=== PATIENT | female | born 1960 | race Caucasian/White ===

== ENCOUNTER 2017-02-27 08:24 | Emergency (ER) | payer MEDICAID ==
[~2017-02-27] VITALS: Wt 75.7 kg
[~2017-02-27 08:24] MED LIST: ARICEPT10 MG PO; ARICEPT5 M1 PO; ARICEPT5 MG PO; AUGMENTIN 875 M1 TAB PO; NAMENDA10 MG PO; NKHM; PERCOCET 325 MG1 TA5 PO; SYNTHROID,LEV100 MCG PO; SYNTHROID0.025 MG PO; VITAMIN D-32000 UNIT PO
[2017-02-27 09:30] LABS: BASO % 0.2 % (0.0-1.0); EOS # 0.1 10*3/uL (0.0-0.4); EOS % 0.6 % (1.0-4.0); HEMOGLOBIN 13.9 g/dl (12.0-16.0); LYMPH # 0.9 10*3/uL (1.3-4.4); LYMPH % 9.5 % (27.0-41.0); MEAN CELL VOLUME 89.3 fl (81.0-99.0); MEAN CORPUSCULAR HGB CONC 34.8 g/dl (33.0-37.0); MEAN PLATELET VOLUME 10.2 fl (9.6-12.3); MONO # 0.6 10*3/uL (0.1-1.0); MONO % 5.7 % (3.0-9.0); NEUT # 8.3 10*3/uL (2.3-7.9); NEUT % 83.4 % (47.0-73.0); PLATELET COUNT AUTOMATED 280 10*3/uL (130-400); RED BLOOD COUNT 4.48 10*6/uL (4.10-5.10); RED CELL DISTRI WIDTH 12.6 % (0-14.5); WHITE BLOOD COUNT 9.9 10*3/uL (4.8-10.8)
[2017-02-27 09:47] LABS: ALBUMIN 3.8 gm/dl (3.1-4.5); ALKALINE PHOSPHATASE 59 U/L (45-117); BUN 16 mg/dl (7-24); CHLORIDE 108 mmol/L (98-107); CREATININE 0.98 mg/dL (0.55-1.02); POTASSIUM 3.6 mmol/L (3.5-5.1); SGOT/AST 19 IU/L (3-35); SGPT/ALT 33 U/L (12-78); SODIUM 142 mmol/L (136-145); TOTAL PROTEIN 7.3 gm/dL (6.4-8.2)
[2017-02-27 09:48] LABS: TROPONIN I < 0.015 ng/ml (<0.045)
[2017-02-27 10:31] LABS: BILIRUBIN NEGATIVE (NEGATIVE); BLOOD NEGATIVE (NEGATIVE); CLARITY CLEAR (CLEAR); COLOR YELLOW (YELLOW); GLUCOSE NEGATIVE (NEGATIVE); KETONE NEGATIVE (NEGATIVE); LEUKO ESTERASE NEGATIVE (NEGATIVE); NITRITE NEGATIVE (NEGATIVE); UROBILINOGEN 0.2 E.U./dl (0.2-1.0)
[2017-02-27 10:49] LABS: BACTERIA TRACE
[2017-02-27 10:50] LABS: WBC 0-2 wbc/hpf (0-5)
== END 2017-02-27 13:35 | disposition home or self-care (01) ==
LOC: ED 08:24
PROVIDERS: Emergency Medicine
DX: S06.0X0A Concussion without loss of consciousness, initial encounter (principal); S09.8XXA Other specified injuries of head, initial encounter; Z79.899 Other long term (current) drug therapy; Z90.49 Acquired absence of other specified parts of digestive tract; W18.09XA Striking against other object with subsequent fall, initial encounter; Y93.89 Activity, other specified; Y92.89 Other specified places as the place of occurrence of the external cause; Y99.8 Other external cause status

== ENCOUNTER → 2017-06-28 | Outpatient (CLI) | payer MEDICAID ==
[2017-06-28 10:18] LABS: BASO % 0.5 % (0.0-1.0); EOS # 0.2 10*3/uL (0.0-0.4); EOS % 2.4 % (1.0-4.0); HEMATOCRIT 42.8 % (37.0-47.0); HEMOGLOBIN 14.2 g/dl (12.0-16.0); LYMPH # 2.1 10*3/uL (1.3-4.4); LYMPH % 31.3 % (27.0-41.0); MEAN CELL VOLUME 90.9 fl (81.0-99.0); MEAN CORPUSCULAR HGB 30.1 pg (27.0-31.0); MEAN CORPUSCULAR HGB CONC 33.2 g/dl (33.0-37.0); MEAN PLATELET VOLUME 10.1 fl (9.6-12.3); MONO # 0.6 10*3/uL (0.1-1.0); MONO % 9.8 % (3.0-9.0); NEUT # 3.7 10*3/uL (2.3-7.9); NEUT % 55.8 % (47.0-73.0); PLATELET COUNT AUTOMATED 304 10*3/uL (130-400); RED BLOOD COUNT 4.71 10*6/uL (4.10-5.10); RED CELL DISTRI WIDTH 13.1 % (0-14.5); WHITE BLOOD COUNT 6.5 10*3/uL (4.8-10.8)
[2017-06-28 10:43] LABS: ALBUMIN 3.7 gm/dl (3.1-4.5); ALKALINE PHOSPHATASE 60 U/L (45-117); BUN 14 mg/dl (7-24); CHLORIDE 107 mmol/L (98-107); IRON 103 ug/dL (50-170); POTASSIUM 3.7 mmol/L (3.5-5.1); SGOT/AST 10 IU/L (3-35); SGPT/ALT 23 U/L (12-78); SODIUM 143 mmol/L (136-145); TOTAL IRON BINDING CAPACITY 286 ug/dl (250-450); TOTAL PROTEIN 7.5 gm/dL (6.4-8.2)
[2017-06-28 11:06] LABS: FREE T4 0.74 ng/dl (0.76-1.46)
== END | disposition home or self-care (01) ==
LOC: LAB 09:45
PROVIDERS: Family Medicine
DX: E03.9 Hypothyroidism, unspecified (principal); I10 Essential (primary) hypertension; F50.89 Other specified eating disorder

== ENCOUNTER → 2017-09-03 | Outpatient (CLI) | payer MEDICAID ==
[~2017-09-03] MED LIST changes: +LEVOFLOXACIN500 MG PO
[2017-09-03 09:40] LABS: BASO % 0.5 % (0.0-1.0); EOS # 0.2 10*3/uL (0.0-0.4); EOS % 4.6 % (1.0-4.0); HEMATOCRIT 44.7 % (37.0-47.0); LYMPH # 1.1 10*3/uL (1.3-4.4); LYMPH % 25.7 % (27.0-41.0); MEAN CELL VOLUME 89.2 fl (81.0-99.0); MEAN CORPUSCULAR HGB 29.9 pg (27.0-31.0); MEAN CORPUSCULAR HGB CONC 33.6 g/dl (33.0-37.0); MEAN PLATELET VOLUME 9.8 fl (9.6-12.3); MONO # 0.6 10*3/uL (0.1-1.0); MONO % 13.3 % (3.0-9.0); NEUT # 2.3 10*3/uL (2.3-7.9); NEUT % 55.7 % (47.0-73.0); PLATELET COUNT AUTOMATED 226 10*3/uL (130-400); RED BLOOD COUNT 5.01 10*6/uL (4.10-5.10); RED CELL DISTRI WIDTH 12.4 % (0-14.5); WHITE BLOOD COUNT 4.1 10*3/uL (4.8-10.8)
[2017-09-03 09:57] LABS: ALBUMIN 3.6 gm/dl (3.1-4.5); ALKALINE PHOSPHATASE 53 U/L (45-117); BUN 9 mg/dl (7-24); CHLORIDE 108 mmol/L (98-107); CREATININE 0.96 mg/dL (0.55-1.02); IRON 120 ug/dL (50-170); POTASSIUM 3.2 mmol/L (3.5-5.1); SGOT/AST 13 IU/L (3-35); SGPT/ALT 28 U/L (12-78); SODIUM 145 mmol/L (136-145); TOTAL IRON BINDING CAPACITY 265 ug/dl (250-450); TOTAL PROTEIN 7.7 gm/dL (6.4-8.2)
[2017-09-03 10:51] LABS: FREE T4 1.41 ng/dl (0.76-1.46)
== END | disposition home or self-care (01) ==
LOC: LAB 09:02
PROVIDERS: Family Medicine
DX: E03.9 Hypothyroidism, unspecified (principal); I10 Essential (primary) hypertension; F50.89 Other specified eating disorder; R30.0 Dysuria; G30.0 Alzheimer's disease with early onset; Z79.899 Other long term (current) drug therapy

== ENCOUNTER 2017-09-08 15:26 | Emergency (ER) | payer MEDICAID ==
[~2017-09-08] VITALS: Ht 167.6 cm; Wt 72.6 kg
[~2017-09-08 15:26] MED LIST changes: -LEVOFLOXACIN500 MG PO
[2017-09-08 16:00] LABS: BASO % 0.3 % (0.0-1.0); EOS % 0.5 % (1.0-4.0); HEMATOCRIT 43.6 % (37.0-47.0); HEMOGLOBIN 14.9 g/dl (12.0-16.0); LYMPH # 1.5 10*3/uL (1.3-4.4); LYMPH % 23.8 % (27.0-41.0); MEAN CELL VOLUME 88.8 fl (81.0-99.0); MEAN CORPUSCULAR HGB 30.3 pg (27.0-31.0); MEAN CORPUSCULAR HGB CONC 34.2 g/dl (33.0-37.0); MONO # 0.9 10*3/uL (0.1-1.0); MONO % 13.9 % (3.0-9.0); NEUT # 3.9 10*3/uL (2.3-7.9); NEUT % 61.2 % (47.0-73.0); PLATELET COUNT AUTOMATED 244 10*3/uL (130-400); RED BLOOD COUNT 4.91 10*6/uL (4.10-5.10); RED CELL DISTRI WIDTH 12.2 % (0-14.5); WHITE BLOOD COUNT 6.4 10*3/uL (4.8-10.8)
[2017-09-08 16:11] LABS: ALBUMIN 3.5 gm/dl (3.1-4.5); ALKALINE PHOSPHATASE 49 U/L (45-117); BUN 12 mg/dl (7-24); CHLORIDE 104 mmol/L (98-107); CREATININE 0.98 mg/dL (0.55-1.02); POTASSIUM 3.5 mmol/L (3.5-5.1); SGOT/AST 17 IU/L (3-35); SGPT/ALT 25 U/L (12-78); SODIUM 141 mmol/L (136-145); TOTAL PROTEIN 7.1 gm/dL (6.4-8.2)
[2017-09-08 16:15] LABS: BILIRUBIN NEGATIVE (NEGATIVE); BLOOD NEGATIVE (NEGATIVE); CLARITY SL CLOUDY (CLEAR); COLOR YELLOW (YELLOW); GLUCOSE NEGATIVE (NEGATIVE); KETONE NEGATIVE (NEGATIVE); LEUKO ESTERASE TRACE (NEGATIVE); NITRITE NEGATIVE (NEGATIVE); SPECIFIC GRAVITY <= 1.005 (1.005-1.030)
[2017-09-08 16:20] LABS: BACTERIA 1+; MUCOUS TRACE; WBC 21-30 wbc/hpf (0-5)
[2017-09-08] MEDS ORDERED: LEVOFLOXACIN500 MG PO (16:40)
== END 2017-09-08 16:48 | disposition home or self-care (01) ==
LOC: ED 15:26
PROVIDERS: Emergency Medicine
DX: N39.0 Urinary tract infection, site not specified (principal); G31.09 Other frontotemporal neurocognitive disorder; F02.80 Dementia in other diseases classified elsewhere, unspecified severity, without behavioral disturbance, psychotic disturbance, mood disturbance, and anxiety; Z90.49 Acquired absence of other specified parts of digestive tract; Z79.899 Other long term (current) drug therapy

== ENCOUNTER 2019-01-05 17:57 | Inpatient (IN) | payer MEDICAID ==
[~2019-01-05] VITALS: Ht 167.6 cm; Wt 60.0 kg
[~2019-01-05 17:57] MED LIST changes: +LEVOFLOXACIN500 MG PO
[2019-01-05 18:00] VITALS: BP 105/68
--- NOTE | 2019-01-05 18:11 | NUR ---
WARM BLANKET PROVIDED. VARIOUS FAMILY IS AT THE BEDSIDE. AWAITING ORDERS. WILL MONITOR.
[2019-01-05] MEDS ORDERED: LEVOXYL112 MCG PO (18:20)
[2019-01-05] MEDS ORDERED: DEPAKOTE125 MG PO (18:21)
[2019-01-05] MEDS ORDERED: LISINOPRIL5 MG PO (18:21)
[2019-01-05] MEDS ORDERED: VISTARIL25 MG PO (18:21)
[2019-01-05] MEDS ORDERED: REMERON30 M1 PO (18:21)
--- NOTE | 2019-01-05 18:29 | NUR ---
TAKEN FOR X-RAY VIA STRETCHER.
--- NOTE | 2019-01-05 18:30 | NUR ---
MED REC COMPLETED MUCH POSSIBLE. FAMILY UNSURE OF SOME DOSES OF MEDICATIONS.
--- NOTE | 2019-01-05 18:54 | NUR ---
Flu swab sent. Awaiting effects of zofran prior to administering tylenol due to episode of green emesis 10 minutes ago. Family changed gown and bed linens.
[2019-01-05 19:15] LABS: HEMATOCRIT 44.8 % (37.0-47.0); MEAN CELL VOLUME 92.2 fl (81.0-99.0); MEAN CORPUSCULAR HGB 30.9 pg (27.0-31.0); MEAN CORPUSCULAR HGB CONC 33.5 g/dl (33.0-37.0); MEAN PLATELET VOLUME 10.5 fl (9.6-12.3); PLATELET COUNT AUTOMATED 311 10*3/uL (130-400); RED BLOOD COUNT 4.86 10*6/uL (4.10-5.10); RED CELL DISTRI WIDTH 12.5 % (0-14.5); WHITE BLOOD COUNT 20.5 10*3/uL (4.8-10.8)
[2019-01-05 19:23] LABS: ALBUMIN 4.2 gm/dl (3.1-4.5); ALKALINE PHOSPHATASE 42 U/L (45-117); BUN 21 mg/dl (7-24); CHLORIDE 107 mmol/L (98-107); CREATININE 1.03 mg/dL (0.55-1.02); POTASSIUM 3.6 mmol/L (3.5-5.1); SGOT/AST 14 IU/L (3-35); SGPT/ALT 36 U/L (12-78); SODIUM 141 mmol/L (136-145); TOTAL PROTEIN 7.6 gm/dL (6.4-8.2)
--- NOTE | 2019-01-05 19:27 | NUR ---
NOTIFIED YANIRA MIXON OF LACTIC ACID OF 3.3.
[2019-01-05 19:32] LABS: PLATELET SUFFICIENCY NORMAL (NORMAL); TOTAL CELLS COUNTED 100 #CELLS
--- NOTE | 2019-01-05 19:44 | NUR ---
DR RUTHERFORD AND YANIRA IN TO DISCUSS ADMISSION AND ADDITIONAL ORDERS WITH FAMILY.
[2019-01-05 19:45] VITALS: BP 115/71
--- NOTE | 2019-01-05 19:45 | NUR ---
FAMILY AWARE OF NEED FOR URINE SPECIMEN AND IS GOING TO CAR TO RETRIEVE NEW DEPEND SO PATIENT CAN BE AMBULATED TO BATHROOM TO ATTEMPT SPECIMEN COLLECTION.
--- NOTE | 2019-01-05 19:55 | NUR ---
OFF THE FLOOR FOR IMAGING.
--- NOTE | 2019-01-05 20:24 | NUR ---
FAMILY ASSISTED TO BATHROOM TO ATTEMPT URINE COLLECTION. CLEAN BRIEF AND WIPES PROVIDED.
--- NOTE | 2019-01-05 20:35 | NUR ---
STRAIGHT CATH FOR URINE PERFORMED WITH ASSIST OF FAMILY AND URINE SENT. TOLERATED WELL. YANIRA IS AT THE BEDSIDE DISCUSSING RESULTS.
[2019-01-05 20:42] LABS: BILIRUBIN NEGATIVE (NEGATIVE); BLOOD NEGATIVE (NEGATIVE); CLARITY SL CLOUDY (CLEAR); COLOR YELLOW (YELLOW); GLUCOSE NEGATIVE (NEGATIVE); KETONE TRACE (NEGATIVE); LEUKO ESTERASE 1+ (NEGATIVE); NITRITE POSITIVE (NEGATIVE); PH 8.5 (5.0-9.0)
--- NOTE | 2019-01-05 20:46 | NUR ---
YANIRA MIXON IS AT THE BEDSIDE.
[2019-01-05 20:48] LABS: BACTERIA 4+; WBC 51-100 wbc/hpf (0-5)
--- NOTE | 2019-01-05 21:37 | NUR ---
SPOKE WITH MARTINA BRENNAN TO ADVISE OF PT ON [place] MONITOR AND LEAVING DEPARTMENT WITH THIS RN.
[2019-01-05 21:50] VITALS: BP 141/76
--- NOTE | 2019-01-05 21:50 | NUR ---
A 58, admitted to , under the services of LINDA Colvin DO with a diagnosis of N/V, FEVER. Chief complaint is MULTIPLE COMPLAINTS. Patient arrived via stretcher from ER. DIOGENES WRAY
--- NOTE | 2019-01-05 22:30 | NUR ---
DR. KING NOTIFIED OF PATIENT ARRIVAL, NPO STATUS, DEMENTIA/NONVERBAL STATUS, MEDICATION RECONCILLIATION COMPLETED. WAITING ON ORDERS
--- NOTE | 2019-01-05 22:30 | NUR ---
DR. KING NOTIFIED OF FAMILY CONCERNS OVER MULTIPLE ANTIBIOTICS ORDERED IN SHORT PERIOD OF TIME, ORDERS RECEIVED. ALSO MADE AWARE OF LACTIC ACID 3.4 AND LAB HERE NOW TO DRAW NEXT ORDERED.
[2019-01-06] VITALS: BP 107/67
--- NOTE | 2019-01-06 01:10 | NUR ---
DR. KING NOTIFIED OF LACTIC ACID RESULT OF 2.2 AND THAT ORDERED BOLUS WAS STILL INFUSING, NO ORDERS RECEIVED.
--- NOTE | 2019-01-06 01:40 | NUR ---
FLUID BOLUS COMPLETED AT THIS TIME. PATIENT RESTING IN BED IN A POSITION OF COMFORT, NO SIGNS OR SYMPTOMS OF DISTRESS OR PAIN NOTED. FAMILY AT BEDSIDE. CALL LIGHT WITHIN REACH OF FAMILY. WILL CONTINUE TO MONITOR.
--- NOTE | 2019-01-06 03:12 | NUR ---
NOTIFIED BY LAB OF PATIENT LACTIC ACID LEVEL OF 2.1, WHICH IS TRENDING DOWN FROM INITIAL 3.3 IN ER.
--- NOTE | 2019-01-06 04:12 | NUR ---
PATIENT RESTING IN A POSITION OF COMFORT, RESPIRATIONS EASY AND NONLABORED AT THIS TIME. DAUGHTER AT BEDSIDE. CALL LIGHT WITHIN REACH.
[2019-01-06 07:08] LABS: ALKALINE PHOSPHATASE 33 U/L (45-117); BUN 16 mg/dl (7-24); CHLORIDE 116 mmol/L (98-107); CHOLESTEROL 125 mg/dL (<200); HDL CHOLESTEROL 42 mg/dl (40-60); LDL CHOLESTEROL 75 mg/dL (9-159); PHOSPHOROUS 2.9 mg/dL (2.5-4.9); POTASSIUM 4.1 mmol/L (3.5-5.1); SGOT/AST 20 IU/L (3-35); SGPT/ALT 34 U/L (12-78); SODIUM 146 mmol/L (136-145); TRIGLYCERIDES 42 mg/dl (<150); VLDL CHOLESTEROL 8 mg/dL (6-40)
[2019-01-06 07:10] LABS: BASO % 0.2 % (0.0-1.0); EOS % 0.1 % (1.0-4.0); HEMOGLOBIN 11.6 g/dl (12.0-16.0); LYMPH # 1.5 10*3/uL (1.3-4.4); LYMPH % 8.8 % (27.0-41.0); MEAN CELL VOLUME 94.3 fl (81.0-99.0); MEAN CORPUSCULAR HGB 31.3 pg (27.0-31.0); MEAN CORPUSCULAR HGB CONC 33.1 g/dl (33.0-37.0); MEAN PLATELET VOLUME 11.4 fl (9.6-12.3); MONO # 1.4 10*3/uL (0.1-1.0); MONO % 8.3 % (3.0-9.0); NEUT # 13.9 10*3/uL (2.3-7.9); NEUT % 82.2 % (47.0-73.0); PLATELET COUNT AUTOMATED 248 10*3/uL (130-400); RED BLOOD COUNT 3.71 10*6/uL (4.10-5.10); RED CELL DISTRI WIDTH 12.8 % (0-14.5); WHITE BLOOD COUNT 16.9 10*3/uL (4.8-10.8)
[2019-01-06 08:00] VITALS: BP 92/70
--- NOTE | 2019-01-06 08:19 | NUR ---
FAMILY WOULD LIKE TO HOLD AEROSOL TREATMENTS D/T PTS INCREASED AGITATION DURING ADMINISTRATION.
[2019-01-06 08:22] LABS: VITAMIN D, 25-HYDROXY 17.7 ng/mL (30-100)
--- NOTE | 2019-01-06 09:00 | NUR ---
Utilities Ground Worker in to talk to patient. Patient states lives at home with daughter in law and son. There are no steps in the home. Physician: leah marquez Pharmacy: Home health services: passport services through [employer] Patient's level of ADLs: MODERATE ASSIST Patient has working utilities: all working DME: none Follow-up physician's appointment after d/c: will be made by hospitalist kianna director upon discharge Does patient want to access PORTAL?: no Discharge plan discussed with patient, discussed with patient's daughter and daughter in law, patient is non verbal, patient lives at home with daughter in law and son, daughter in law states patient has passport services through [employer], which is only an aid, family stated patient would be returning home when medically stable, discussed with them VNA and family stated they didn't see that patient had a skilled need at this time, case management will follow. JULY SIFUENTES
--- NOTE | 2019-01-06 09:07 | NUR ---
ARVIND SCOTT AT DESK AND NOTIFIED OF PT BP AND THAT PT NPO. NEW ORDER FOR 5OO ML IVF BOLUS
--- NOTE | 2019-01-06 10:34 | NUR ---
PER FAMILY PT HOLDING HEAD AND MAY BE SHOWING SIGNS OF NAUDEA AND/OR PAIN. FAMILY REQUESTED I GIVE TYLENOL AND ZOFRAN. GIVEN TYLENOL SUPP AT THIS TIME SINCE PT IS NPO AND ZOFRAN. WILL CONT TO MONITOR. CALL LIGHT IN REACH.
[2019-01-06 10:48] VITALS: BP 100/70
[2019-01-06 12:00] VITALS: BP 93/73
[2019-01-06 12:30] VITALS: BP 102/60
--- NOTE | 2019-01-06 13:05 | NUR ---
SPEECH PATHOLOGY Clinical swallowing evaluation completed as per order to assess safety of swallow. Medical history includes Alzheimer's dementia. Patient was admitted with nausea/vomiting and fever. Family members were present and reported concern about aspiration, suspecting it occurring after patient vomited. Family also reported that recently patient has begun to hold food and liquid in her mouth prior to swallowing. CT of chest revealed dense consolidation in right lower lobe and patchy airspace disease in right middle lobe. Findings concerning of pneumonia. Patient is currently NPO. She was seen this pm. Patient was alert with cues provided as she often shut her eyes. Patient was nonverbal and unable to follow commands. She was assessed with puree, soft solid and thin liquid taken by cup. When given pureed consistency, patient was noted to display mildly increased oral transit time. Once she swallowed there was no residue, cough or throat clearing. With soft solid, lengthy mastication and oral transit were displayed. Mild oral residue was noted which cleared with liquid wash. No cough or throat clearing was observed. Patient took single sips of water with a timely swallow and no cough or throat clearing. Overall she displayed a mild-moderate oral dysphagia characterized by slow mastication, oral transit and residue. Recommend patient receive a pureed diet and thin liquids. Recommend patient be fully awake for meals, take small bites/sips and alternating consistencies to heighten awareness to reduce holding of food and liquid. MBS is not warranted at this time as pharyngeal deficits are not suspected. Follow up therapy is recommended to ensure safety through education and adherence to safe swallow precautions. Refer to report in [employer] for further information. Thank you for this referral. JAKE AZUL MS[facility]-PAINT LABORATORY TECHNICIAN
--- NOTE | 2019-01-06 13:14 | NUR ---
CLARIFIED VISTARIL FREQUENCY WITH FAMILY.
--- NOTE | 2019-01-06 13:34 | NUR ---
PHYSICAL THERAPY Physical therapy screen completed. Pt surrounded by multiple family members. Family expressed that Pt is mobile and that they have no concerns upon going home.Family refusing physical therapy; expressing no needs. Therapy to be discharged. Thank you Gissell Mantilla, PT, DPT
--- NOTE | 2019-01-06 13:35 | NUR ---
Occupational Therapy evaluation offered but family declined. Patient in bed with blankets up to chin and non-verbal. There were 6 family members in the room with daughter in law (who patient lives with ) and daughter answering the interview questions. Prior to admission family reports that patient was assisted with feeding at times and was able to self feed at others. Family reports that patient is "mobile" and did not need any OT/PT at this time. Family will be taking patient home upon d/c. Discharge OT referral per family request. Judy Diaz OTr/L
--- NOTE | 2019-01-06 14:28 | NUR ---
Duplicate Occupational Therapy order received. Discharge OT referral d/t family declination. Judy Diaz OTR/l
--- NOTE | 2019-01-06 19:35 | NUR ---
24 HOUR CHART CHECK COMPLETE
[2019-01-06 20:00] VITALS: BP 106/65
--- NOTE | 2019-01-06 20:30 | NUR ---
PATIENT ASSESSMENT COMPLETE WITHOUT INCIDENT. FAMILY AT BEDSIDE, STAYING WITH PATIENT ATC DUE TO DEMENTIA/ALZHEIMERS DX. CALL LIGHT WITHIN REACH. FAMILY STATED THEY WILL CHRISTIANO IF ANYTHING IS NEEDED. PATIENT RESTING COMFORTABLY IN BED AT THIS TIME.
--- NOTE | 2019-01-07 04:20 | NUR ---
PATIENT RESTING IN BED IN A POSITION OF COMFORT, NO SIGNS OR SYMPTOMS OF DISTRESS NOTED AT THIS TIME. FAMILY REMAINS AT BEDSIDE. CALL LIGHT WITHIN REACH WILL CONTINUE TO MONITOR.
--- NOTE | 2019-01-07 09:00 | NUR ---
case management visits with patient, daughter in law present, patient will return home with daughter in law and passport services, no other needs at this time, case management will follow
--- NOTE | 2019-01-07 09:38 | NUR ---
SPEECH PATHOLOGY Patient was seen for swallowing treatment this am during breakfast meal. Family members were present and feeding patient. Patient was alert and able to sit upright at edge of bed to eat. Patient was fed a variety of pureed items and took thin liquid by cup and spoon. Family member implemented safe swallow precautions while feeding such as allowing time to swallow due to delayed oral transit, small amounts and alternating consistencies. Patient displayed good consumption of the meal and displayed no residue, cough or throat clearing. Clinician reviewed safety precautions and family demonstrated understanding and appropriate use of the strategies. Continue therapy plan to ensure safety of diet. JAKE AZUL [facility]-TALENT DEVELOPMENT DIRECTOR
[2019-01-07 12:00] VITALS: BP 108/72
[2019-01-07 16:00] VITALS: BP 98/58
[2019-01-07 20:00] VITALS: BP 91/62
--- NOTE | 2019-01-07 20:45 | NUR ---
DR. ALICIA CALLED REGARDING BP OF 90/60. ORDERED TO GIVE MEDICATIONS, DEPAKOTE AND REMERON, SCHEDULED. NO NEW ORDERS AT THIS TIME.
[2019-01-08] VITALS: BP 82/60
--- NOTE | 2019-01-08 07:54 | NUR ---
CALLED ARVIND SCOTT REGARDING BLOOD PRESSURE OF 88/40 MANUALLY. NEW ORDERS RECEIVED. WILL MONITOR.
[2019-01-08 07:57] VITALS: BP 88/40
[2019-01-08 08:21] LABS: BASO % 0.5 % (0.0-1.0); EOS # 0.3 10*3/uL (0.0-0.4); EOS % 4.7 % (1.0-4.0); HEMATOCRIT 34.1 % (37.0-47.0); HEMOGLOBIN 11.5 g/dl (12.0-16.0); LYMPH # 2.3 10*3/uL (1.3-4.4); LYMPH % 36.1 % (27.0-41.0); MEAN CORPUSCULAR HGB CONC 33.7 g/dl (33.0-37.0); MEAN PLATELET VOLUME 10.4 fl (9.6-12.3); MONO # 0.6 10*3/uL (0.1-1.0); MONO % 9.8 % (3.0-9.0); NEUT # 3.1 10*3/uL (2.3-7.9); NEUT % 48.6 % (47.0-73.0); PLATELET COUNT AUTOMATED 223 10*3/uL (130-400); RED BLOOD COUNT 3.59 10*6/uL (4.10-5.10); RED CELL DISTRI WIDTH 13.1 % (0-14.5); WHITE BLOOD COUNT 6.4 10*3/uL (4.8-10.8)
[2019-01-08 08:35] LABS: ALBUMIN 2.7 gm/dl (3.1-4.5); ALKALINE PHOSPHATASE 30 U/L (45-117); BUN 9 mg/dl (7-24); CHLORIDE 114 mmol/L (98-107); CREATININE 0.81 mg/dL (0.55-1.02); POTASSIUM 3.5 mmol/L (3.5-5.1); SGOT/AST 6 IU/L (3-35); SGPT/ALT 21 U/L (12-78); SODIUM 146 mmol/L (136-145); TOTAL PROTEIN 5.8 gm/dL (6.4-8.2)
--- NOTE | 2019-01-08 09:00 | NUR ---
case management visits with patient, family present, denies any home needs
[2019-01-08 10:21] VITALS: BP 94/68
--- NOTE | 2019-01-08 10:21 | NUR ---
RECHECKED BLOOD PRESSURE 94/68 MANUALLY. ARVIND SCOTT NOTIFIED.
[2019-01-08 11:45] VITALS: BP 92/62
[2019-01-08 12:00] VITALS: BP 93/62
--- NOTE | 2019-01-08 12:10 | NUR ---
SPEECH PATHOLOGY Patient seen for treatment this pm. Several family members were present and reported that patient is being discharged to home today. Education was provided regarding continuation of pureed diet and thin liquid. Also discussed use of sippy cup and avoidance of straws at home to control intake amounts for safe consumption. Family members reported that patient is mobile and active at home and often gets other family member's drinks, taking large gulps which increase aspiration risk. Clinician questioned if patient enjoyed activities at home such as coloring and crafts which would keep her busy. Family stated that various activities have been attempted but patient will not engage in them, rather she likes to be on the move. Family members verbalized understanding of information provided and stated that they will implement recommendations offered. As patient is being discharged to home, will discharge dysphagia services at this time. Thank you for this referral. It has been a pleasure taking part in this patient's care. JAKE AZUL MS[facility]-DRILL OPERATOR PNEUMATIC
[2019-01-08] MEDS ORDERED: ZITHROMAX500 MG PO (12:31)
[2019-01-08] MEDS ORDERED: FLAGYL500 MG PO (12:31)
[2019-01-08] MEDS ORDERED: AMINOPHYLLIN200 MG PO (12:31)
[2019-01-08] MEDS ORDERED: GUAIFENESI100 MG/51 PO (12:32)
[2019-01-08] MEDS ORDERED: VITAMIN D32000 UNI1 PO (12:33)
--- NOTE | 2019-01-08 14:15 | NUR ---
PATIENT DISCHARGED TO HOME. ALL PERSONAL BELONGINGS SENT WITH PATIENT. DISCHARGE INSTRUCTIONS AND PRESCRIPTIONS GIVEN AND REVIEWED WITH DAUGHTERS. IV AND PLANT ATTENDANT OR ASSISTANT OPERATOR DISCONTINUED.
== END 2019-01-08 14:15 | disposition home or self-care (01) | DRG 720 ==
LOC: ED 17:57 → 5E 21:32
PROVIDERS: Nurse Practitioner Family; Registered Nurse; Student in an Organized Health Care Education/Training Program; ADMIT Emergency Medicine
DX: A41.9 Sepsis, unspecified organism (principal); J69.0 Pneumonitis due to inhalation of food and vomit; N39.0 Urinary tract infection, site not specified; R65.20 Severe sepsis without septic shock; E44.0 Moderate protein-calorie malnutrition; F02.81 Dementia in other diseases classified elsewhere, unspecified severity, with behavioral disturbance; G30.0 Alzheimer's disease with early onset; I10 Essential (primary) hypertension; E03.9 Hypothyroidism, unspecified; E55.9 Vitamin D deficiency, unspecified; F01.50 Vascular dementia, unspecified severity, without behavioral disturbance, psychotic disturbance, mood disturbance, and anxiety; Z68.21 Body mass index [BMI] 21.0-21.9, adult; Z90.49 Acquired absence of other specified parts of digestive tract; Z80.8 Family history of malignant neoplasm of other organs or systems; Z79.899 Other long term (current) drug therapy

== ENCOUNTER → 2019-01-16 | Outpatient (CLI) | payer MEDICAID ==
[~2019-01-16] MED LIST changes: +AMINOPHYLLIN200 MG PO; +DEPAKOTE125 MG PO; +FLAGYL500 MG PO; +GUAIFENESI100 MG/51 PO; +LEVOXYL112 MCG PO; +LISINOPRIL5 MG PO; +METRONIDAZOLE500 M1 PO; +REMERON30 M1 PO; +VISTARIL25 MG PO; +VITAMIN D32000 UNI1 PO; +ZITHROMAX500 MG PO
[2019-01-16 11:48] LABS: ALBUMIN 3.8 gm/dl (3.1-4.5); ALKALINE PHOSPHATASE 45 U/L (45-117); BUN 11 mg/dl (7-24); CHLORIDE 107 mmol/L (98-107); CREATININE 0.96 mg/dL (0.55-1.02); POTASSIUM 3.3 mmol/L (3.5-5.1); SGOT/AST 19 IU/L (3-35); SGPT/ALT 30 U/L (12-78); SODIUM 144 mmol/L (136-145); TOTAL PROTEIN 8.1 gm/dL (6.4-8.2)
[2019-01-16 11:50] LABS: FREE T4 1.6 ng/dl (0.76-1.46)
[2019-01-16 11:58] LABS: THYROID STIM HORMONE (HS) 1.76 uIU/ml (0.358-4.75)
[2019-01-16 11:59] LABS: BASO % 0.3 % (0.0-1.0); EOS # 0.2 10*3/uL (0.0-0.4); EOS % 2.1 % (1.0-4.0); HEMATOCRIT 44.9 % (37.0-47.0); HEMOGLOBIN 14.5 g/dl (12.0-16.0); LYMPH # 1.7 10*3/uL (1.3-4.4); LYMPH % 23.9 % (27.0-41.0); MEAN CELL VOLUME 95.1 fl (81.0-99.0); MEAN CORPUSCULAR HGB 30.7 pg (27.0-31.0); MEAN CORPUSCULAR HGB CONC 32.3 g/dl (33.0-37.0); MEAN PLATELET VOLUME 10.4 fl (9.6-12.3); MONO # 0.6 10*3/uL (0.1-1.0); NEUT # 4.6 10*3/uL (2.3-7.9); NEUT % 64.1 % (47.0-73.0); PLATELET COUNT AUTOMATED 385 10*3/uL (130-400); RED BLOOD COUNT 4.72 10*6/uL (4.10-5.10); RED CELL DISTRI WIDTH 13.1 % (0-14.5); WHITE BLOOD COUNT 7.1 10*3/uL (4.8-10.8)
[2019-01-16 12:14] LABS: VITAMIN D, 25-HYDROXY 19.5 ng/mL (30-100)
== END | disposition home or self-care (01) ==
LOC: LAB 10:14
PROVIDERS: Registered Nurse; Student in an Organized Health Care Education/Training Program
DX: E03.9 Hypothyroidism, unspecified (principal); E55.9 Vitamin D deficiency, unspecified; F50.89 Other specified eating disorder; J69.0 Pneumonitis due to inhalation of food and vomit

== ENCOUNTER 2019-01-24 11:57 | Emergency (ER) | payer MEDICAID ==
[~2019-01-24] VITALS: Ht 167.6 cm; Wt 59.9 kg
[~2019-01-24 11:57] MED LIST changes: -METRONIDAZOLE500 M1 PO
[2019-01-24 12:35] LABS: BASO % 0.4 % (0.0-1.0); EOS # 0.1 10*3/uL (0.0-0.4); EOS % 1.8 % (1.0-4.0); HEMATOCRIT 38.9 % (37.0-47.0); HEMOGLOBIN 12.9 g/dl (12.0-16.0); LYMPH # 1.2 10*3/uL (1.3-4.4); LYMPH % 24.2 % (27.0-41.0); MEAN CELL VOLUME 94.6 fl (81.0-99.0); MEAN CORPUSCULAR HGB 31.4 pg (27.0-31.0); MEAN CORPUSCULAR HGB CONC 33.2 g/dl (33.0-37.0); MEAN PLATELET VOLUME 10.4 fl (9.6-12.3); MONO # 0.5 10*3/uL (0.1-1.0); MONO % 10.4 % (3.0-9.0); NEUT # 3.2 10*3/uL (2.3-7.9); NEUT % 62.8 % (47.0-73.0); PLATELET COUNT AUTOMATED 284 10*3/uL (130-400); RED BLOOD COUNT 4.11 10*6/uL (4.10-5.10); RED CELL DISTRI WIDTH 12.9 % (0-14.5); WHITE BLOOD COUNT 5.1 10*3/uL (4.8-10.8)
[2019-01-24 12:46] LABS: ACT PARTIAL THROMBO TIME 22.6 SECONDS (20.0-32.1)
[2019-01-24 12:50] LABS: ALBUMIN 3.5 gm/dl (3.1-4.5); ALKALINE PHOSPHATASE 38 U/L (45-117); BUN 17 mg/dl (7-24); CHLORIDE 110 mmol/L (98-107); CREATININE 0.74 mg/dL (0.55-1.02); LIPASE 219 U/L (73-393); POTASSIUM 3.9 mmol/L (3.5-5.1); SGOT/AST 15 IU/L (3-35); SGPT/ALT 38 U/L (12-78); SODIUM 143 mmol/L (136-145)
[2019-01-24] MEDS ORDERED: METRONIDAZOLE500 M1 PO (13:07)
== END 2019-01-24 13:25 | disposition home or self-care (01) ==
LOC: ED 11:57
PROVIDERS: Family Medicine
DX: R19.7 Diarrhea, unspecified (principal); I10 Essential (primary) hypertension; E03.9 Hypothyroidism, unspecified; F03.90 Unspecified dementia, unspecified severity, without behavioral disturbance, psychotic disturbance, mood disturbance, and anxiety; Z90.49 Acquired absence of other specified parts of digestive tract; Z79.2 Long term (current) use of antibiotics; Z79.899 Other long term (current) drug therapy

== ENCOUNTER → 2019-02-17 | Outpatient (CLI) | payer MEDICAID ==
[~2019-02-17] MED LIST changes: +METRONIDAZOLE500 M1 PO
[2019-02-17 13:23] LABS: BILIRUBIN NEGATIVE (NEGATIVE); BLOOD NEGATIVE (NEGATIVE); CLARITY TURBID (CLEAR); COLOR YELLOW (YELLOW); GLUCOSE NEGATIVE (NEGATIVE); KETONE NEGATIVE (NEGATIVE); LEUKO ESTERASE TRACE (NEGATIVE); NITRITE NEGATIVE (NEGATIVE); SPECIFIC GRAVITY >= 1.030 (1.005-1.030); UROBILINOGEN 0.2 E.U./dl (0.2-1.0)
[2019-02-17 13:52] LABS: BACTERIA 2+
== END | disposition home or self-care (01) ==
LOC: LAB 12:10
PROVIDERS: Student in an Organized Health Care Education/Training Program
DX: N39.0 Urinary tract infection, site not specified (principal)